=== PATIENT | male | born 1960 | race Caucasian/White ===

== ENCOUNTER 2017-05-04 18:21 | Emergency (ER) | payer OTHER ==
[~2017-05-04] VITALS: Ht 182.9 cm; Wt 74.9 kg
[2017-05-04] MEDS ORDERED: MOTRIN800 MG PO (19:37)
[2017-05-04 20:27] VITALS: BP 132/94
== END 2017-05-04 20:28 | disposition home or self-care (01) ==
LOC: EME 18:21
DX: S93.402A Sprain of unspecified ligament of left ankle, initial encounter (principal); X50.9XXA Other and unspecified overexertion or strenuous movements or postures, initial encounter; Y99.0 Civilian activity done for income or pay
CPT/HCPCS: 73610; 99281; 99284